=== PATIENT | female | born 1985 | race Two or more races ===

== ENCOUNTER 2025-05-28 17:39 | Emergency (ER) | payer BC, OTHER ==
[~2025-05-28] VITALS: Ht 165.1 cm; Wt 90.8 kg
--- NOTE | 2025-05-28 18:54 | ED.PDOC ---
GI ASSESSMENT HPI Comments 39 year old female presents to the ED with a chief complaint of abdominal pain onset today (05/28/25). Patient states she woke up this morning experiencing RLQ pain as well as dysuria, nausea, vomiting, pain has worsen throughout the day. Last bowel movement was this morning, states she feels constipated. Has experienced UTI in the past, states pain is different. Denies any PMHx as well as fever, chills, diarrhea, chest pain, shortness of breath, dizziness, hematemesis, hematuria. No other symptoms or modifying factors present at this time. Chief Complaint: Abdominal Pain Time Seen by MD: 18:40 Reviewed Notes: Medications, Allergies Allergies: Coded Allergies: NO KNOWN ALLERGIES (Unverified , 05/28/25) Home Meds Active Scripts Tamsulosin Hcl (Flomax) 0.4 Mg Cap, 1 CAP PO DAILY for 30 Days, #30 CAP Prov:VERONIKA DUMONT MD 05/28/25 Hydrocodone-Acetaminophen (Hydrocodone Bitartrate/AC 5-325 mg) 1 Tab Tab, 1 TAB PO Q6HP PRN, #30 TAB Prov:VERONIKA DUMONT MD 05/28/25 Information Source: Patient Mode of Arrival: Ambulatory Timing: Hours Duration: Since onset Prehospital treatment: None Quality: Sharp Severity: Moderate Recent: None Recent Hx of: None Pain Location: RLQ Modifying Factors: Nothing Associated sign and symptoms: Nausea, Vomiting, Constipation, Abdominal Pain Past Medical History PAST MEDICAL HISTORY: Denies Surgical History: Denies all surgeries ORE STORAGE DRIER History: No Pertinent ORE STORAGE DRIER History Family History Family History: Reviewed,noncontributory to illness, No family hx of Cancer, No family hx of DM, No family hx of Heart miroslava, No family hx of HTN, No family hx ofKidney miroslava, No family hx of Liver miroslava, No family hx of Lung miroslava, No family hx of Stroke Social History Smoker: Non-Smoker Alcohol: Denies ETOH Use Drugs: Denies Drug Use Lives In: Home Constitutional: denies: chills, diaphoresis, fatigue, fever, malaise, sweats, weakness, others EENTM: denies: blurred vision, double vision, ear bleeding, ear discharge, ear drainage, ear pain, ear ringing, eye pain, eye redness, hearing loss, mouth pain, mouth swelling, nasal discharge, nose bleeding, nose congestion, nose pain, photophobia, tearing, throat pain, throat swelling, voice changes, others Respiratory: denies: cough, hemoptysis, orthopnea, SOB at rest, shortness of breath, SOB with excertion, stridor, wheezing, others Cardiovascular: denies: chest pain, dizzy spells, diaphoresis, Dyspnea on exertion, edema, irregular heart beat, left arm pain, lightheadedness, palpitations, PND, syncope, others Gastrointestinal: reports: abdominal pain (RLQ), constipated, nausea, vomiting; denies: abdomen distended, blood streaked bowels, diarrhea, dysphagia, difficulty swallowing, hematemesis, melena, poor appetite, poor fluid intake, rectal bleeding, rectal pain, others Genitourinary: reports: dysuria; denies: abnormal vagina bleeding, burning, dyspareunia, flank pain, frequency, hematuria, incontinence, pain, , vagina discharge, urgency, others Neurological: denies: dizziness, fainting, headache, left sided numbness, left sided weakness, numbness, paresthesia, pre-existing deficit, right sided numbness, right sided weakness, seizure, speech problems, tingling, tremors, weakness, others Musculoskeletal: denies: back pain, gout, joint pain, joint swelling, muscle pain, muscle stiffness, neck pain, others Integumetry: denies: bruises, change in color, change in hair/nails, dryness, laceration, lesions, lumps, rash, wounds, others Allergic/Immunocompromised: denies: Difficulty Healing, Frequent Infections, Hives, Itching, others Hematologic/Lymphatic: denies: anemia, blood clots, easy bleeding, easy bruising, swollen glands, others Endocrine: denies: excessive hunger, excessive sweating, excessive thirst, excessive urination, flushing, intolerance to cold, intolerance to heat, unexplained weight gain, unexplained weight loss, others Psychiatric: denies: anxiety, bipolar disorder, depression, hopeless, panic disorder, schizophrenia, sleepless, suicidal, others All Other Systems: Reviewed and Negative Physical Exam General Appearance: No Apparent Distress, Normal HEENT: Normal ENT Inspection, Pharynx Normal, TMs Normal Neck: Full Range of Motion, Non-Tender, Normal, Normal Inspection Respiratory: Chest Non-Tender, Lungs Clear, No Accessory Muscle Use, No Respiratory Distress, Normal Breath Sounds Cardiovascular: No Edema, No JVD, No Murmur, No Gallop, Normal Peripheral Pulses, Regular Rate/Rhythm Breast Exam: Deferred Gastrointestinal: No Organomegaly, Non Tender, No Pulsatile Mass, Normal Bowel Sounds, Soft Genitalia: Deferred Pelvic: Deferred Rectal: Deferred Extremities: No calf tenderness, Normal capillary refill, Normal inspection, Normal range of motion, Non-tender, No pedal edema Musculoskeletal : Apperance: Normal Neurologic: Alert, mor[employer] II-XII nml as Tested, No Motor Deficits, Normal Affect, Normal Mood, No Sensory Deficits Cerebellar Function: Normal Reflexes: Normal Skin: Dry, Normal Color, Warm Lymphatic: No Adenopathy Was a procedure done? Was a procedure done?: No GI differential Dx Differential Diagnosis: Appendicitis, Bowel Obstruction, Diverticular disease, Ectopic , Gastritis/PUD, Gastroenteritis, UTI, Kidney Stone, Other X-Ray, Labs, Meds, VS Vital Signs Date Time Temp Pulse Resp B/P (MAP) Pulse Ox O2 Delivery O2 Flow Rate FiO2 05/28/25 23:04 98.3 80 16 126/75 (92) 99 98.3 05/28/25 23:04 80 16 99 Room Air 05/28/25 17:41 98.8 86 15 152/79 10 98.8 Lab Test 05/28/25 18:09 05/28/25 18:07 Range/Units White Blood Count 11.6 H 4.4-10.8 10^3/uL Red Blood Count 4.52 4.0-5.20 10^6/uL Hemoglobin 10.9 L 12.2-16.2 g/dL Hematocrit 32.9 L 36.0-46.0 % Mean Corpuscular Volume 72.8 L 80.0-100.0 fL Mean Corpuscular Hemoglobin 24.2 L 28.0-32.0 pg Mean Corpuscular Hemoglobin Concent 33.3 32.0-36.0 g/dL Red Cell Distribution Width 15.2 H 11.8-14.3 % Platelet Count 414 140-450 10^3/uL Mean Platelet Volume 7.5 6.9-10.8 fL Neutrophils (%) (Auto) 83.8 H 37.0-80.0 % Lymphocytes (%) (Auto) 10.9 10.0-50.0 % Monocytes (%) (Auto) 4.7 0.0-12.0 % Eosinophils (%) (Auto) 0.2 0.0-7.0 % Basophils (%) (Auto) 0.4 0.0-2.0 % Neutrophils # (Auto) 9.7 H 1.6-8.6 10 ^3/uL Lymphocytes # (Auto) 1.3 0.4-5.4 10 ^3/uL Monocytes # (Auto) 0.5 0-1.3 10 ^3/uL Eosinophils # (Auto) 0 0-0.8 10 ^3/uL Basophils # (Auto) 0.1 0-0.2 10 ^3/uL Nucleated Red Blood Cells 0.1 % Sodium Level 141 136-145 mmol/L Potassium Level 4.2 3.5-5.1 mmol/L Chloride Level 106 98-107 mmol/L Carbon Dioxide Level 26 20-31 mmol/L Anion Gap 9 5-15 Blood Urea Nitrogen 10 9-23 mg/dL Creatinine 1.11 H 0.550-1.02 mg/dL Glomerular Filtration Rate Calc 65 >90 mL/min BUN/Creatinine Ratio 9.0 L 10.0-20.0 Serum Glucose 107 H 74-106 mg/dL Calcium Level 9.5 8.7-10.4 mg/dL Total Bilirubin 0.5 0.2-1.0 mg/dL Aspartate Amino Transferase (AST) 16 13-40 U/L Alanine Aminotransferase (ALT) 12 7-40 U/L Alkaline Phosphatase 63 46-116 U/L Total Protein 7.2 5.7-8.2 g/dL Albumin 4.9 H 3.2-4.8 g/dL Lipase 32 12-53 U/L Urine Color Yellow Yellow Urine Clarity Turbid H Clear Urine pH 6.0 5.0-9.0 Urine Specific [place] 1.035 1.001-1.035 Urine Protein Trace H Negative Urine Ketones 2+ H Negative Urine Blood 3+ H Negative /uL Urine Nitrite Negative Negative Urine Bilirubin Negative Negative Urine Urobilinogen Normal Negative mg/dL Urine Leukocyte Esterase Negative Negative /uL Urine RBC 690 0 - 4 /hpf Urine Microscopic WBC 2 0-5 /HPF Urine Squamous Epithelial Cells Few <5 /hpf Urine Bacteria None seen None Seen /hpf Urine Mucus Few None Seen Urine Yeast (Budding) Occasional None Seen /hpf Urine Glucose Normal Normal mg/dL Current Medications Medications (Trade) Dose Ordered Sig/Nathan Route Start Time Stop Time Status Last Admin Ondansetron HCl (Zofran Po) 8 mg ONCE ONCE PO 05/28/25 19:00 05/28/25 19:01 DC 05/28/25 19:00 Ketorolac Tromethamine (Toradol Injection) 30 mg ONCE ONCE IV 05/28/25 19:00 05/28/25 19:01 DC 05/28/25 21:04 Acetaminophen/ Hydrocodone Bitart ([place] 10/325MG Tab) 1 tab ONCE ONCE PO 05/28/25 19:00 05/28/25 19:01 DC 05/28/25 19:00 Tamsulosin HCl (Flomax) 0.4 mg ONCE ONCE PO 05/28/25 20:15 05/28/25 20:16 DC 05/28/25 20:15 [place] [id number] Ph: [phone] DIAGNOSTIC IMAGING Diagnostic Imaging Report : [id number] Signed PATIENT: ORLY WRAY ACCT: [id number] UNIT: [id number] : 1985 LOC: ER ROOM / BED: / AGE / SEX: 39 / F ADM STATUS: REG ER SERVICE 46 ORDERING PHYSICIAN: VERONIKA DUMONT MD PROCEDURE(s): ABPL - CT AB PEL WO CON-NO ORAL OR IV REASON: right flank pain ORDER NUMBER(s): [id number], ACCESSION NUMBER(s): [id number] COMPUTERIZED TOMOGRAPHY ABDOMEN AND PELVIS WITHOUT CONTRAST REASON FOR EXAM: right flank pain COMPARISON: None TECHNIQUE: Spiral scans were acquired from the diaphragm to the symphysis pubis without intravenous contrast administration. 2-D coronal and sagittal reformatted images were provided. Radiation optimization: All CT scans at this facility use at least one of these dose optimization techniques: Automated exposure control mA and/or kV adjustment per patient size (includes targeted exams where dose is matched to clinical indication) or iterative reconstruction. RADIATION DOSE: CTDI: 22 mGy DLP: 1172 mGy-cm FINDINGS: The visualized lung bases are clear. There is no pleural effusion. There is no pericardial effusion. The spleen is not enlarged. The liver is within normal limits for size and contour. Evaluation of the abdominal organs is suboptimal in the absence of intravenous contrast. There is no calcified gallstone. Unenhanced appearance of the pancreas is unremarkable. The adrenal glands are normal. There is a 2 mm nonobstructive calculus at the interpolar region of the left kidney. There is a 3 mm calculus in the distal right ureter at the ureterovesical junction causing moderate right hydroureteronephrosis. The urinary bladder is decompressed. The uterus and ovaries are within normal limits. There is trace free fluid in the dependent pelvis, likely physiologic. There is no significant colonic stool burden. The appendix is normal. There is no distention of the small bowel. There is no pathologic lymphadenopathy by size criteria. There is no abdominal aortic aneurysm. No acute osseous abnormality is identified. IMPRESSION: There is a 3 mm calculus in the distal right ureter at the ureterovesical junction causing moderate right hydroureteronephrosis. There is a nonobstructive 2 mm calculus in the left kidney. There is no left hydronephrosis. Normal appendix ATED BY: SONG IRVIN MD DICTATED DATE/TIME: 05/28/251955 SIGNED BY: SONG IRVIN MD SIGNED DATE/TIME: 05/28/251955 CC: Time of 1ST Reevaluation: 19:10 Reevaluation 1ST: Unchanged Patient Education/Counseling: Diagnosis, Treatment Family Education/Counseling: No Family Present SEPSIS Sepsis Screen Date sepsis recognized/suspect: May 28, 2025 Time Sepsis recognized/suspect: 1744 Recent Procedure: No On Antibiotic Therapy: No Respiratory Rate >20: No Heart Rate >90: No Temp<36 C (96.8 F) or >38.3 C: No SBP <90 or MAP <65 mmHG: No New Acute Mental Status Change: No Is the patient on CPAP, BIPAP,: No Physician Orders Ct Ab Pel Wo Con-No Oral Or Iv (05/28/25 18:47) Vital Signs Date Time Temp Pulse Resp B/P (MAP) Pulse Ox O2 Delivery O2 Flow Rate FiO2 05/28/25 23:04 98.3 80 16 126/75 (92) 99 98.3 05/28/25 23:04 80 16 99 Room Air 05/28/25 17:41 98.8 86 15 152/79 10 98.8 Laboratory Tests Test 05/28/25 18:09 White Blood Count 11.6 10^3/uL (4.4-10.8) H Medications Medications Dose Ordered Sig/Nathan Route Start Time Stop Time Status Last Admin Dose Admin Acetaminophen/ Hydrocodone Bitart 1 tab ONCE ONCE PO 05/28/25 19:00 05/28/25 19:01 DC 05/28/25 19:00 Ketorolac Tromethamine 30 mg ONCE ONCE IV 05/28/25 19:00 05/28/25 19:01 DC 05/28/25 21:04 Ondansetron HCl 8 mg ONCE ONCE PO 05/28/25 19:00 05/28/25 19:01 DC 05/28/25 19:00 Tamsulosin HCl 0.4 mg ONCE ONCE PO 05/28/25 20:15 05/28/25 20:16 DC 05/28/25 20:15 Departure 1 Departure Time of Disposition: 21:00 Impression: Primary Impression: Ureteral calculus, right Additional Impression: Ureteral colic Disposition: HOME / SELF CARE / HOMELESS Condition: Stable e-Prescriptions Tamsulosin Hcl (Flomax) 0.4 Mg Cap 1 CAP PO DAILY for 30 Days, #30 CAP Prov: VERONIKA DUMONT MD 05/28/25 Hydrocodone-Acetaminophen (Hydrocodone Bitartrate/AC 5-325 mg) 1 Tab Tab 1 TAB PO Q6HP PRN, #30 TAB Prov: VERONIKA DUMONT MD 05/28/25 Discharged With: Self Critical Care Note Critical Care Time?: No Stability Stability form required: No I personally scribed for VERONIKA DUMONT MD ([email or web address]) on 05/28/25 at 18:54. Electronically submitted by Theodora Hubbard ([email or web address]). I personally scribed for VERONIKA DUMONT MD ([email or web address]) on 05/28/25 at 19:10. Electronically submitted by Theodora Hubbard ([email or web address]). I personally scribed for VERONIKA DUMONT MD ([email or web address]) on 05/28/25 at 20:21. Electronically submitted by Theodora Hubbard ([email or web address]). VERONIKA DUMONT MD May 28, 2025 18:54
[2025-05-28] MEDS: HYDROcodone-ACET 10/325MG TAB PO ONE (19:00)
[2025-05-28] MEDS: ONDANSETRON ODT 4 MG TAB PO ONE (19:00)
[2025-05-28 19:08] LABS: Urine Budding Yeast OCCASIONAL /hpf (None Seen); Urine Protein, UAD TRACE (Negative)
[2025-05-28 19:14] LABS: Hematocrit 32.9 % (36.0-46.0); Hemoglobin 10.9 g/dL (12.2-16.2); Mean Corpuscular Hemoglobin 24.2 pg (28.0-32.0); Mean Corpuscular Volume 72.8 fL (80.0-100.0); Nucleated Red Blood Cells % 0.1 %
[2025-05-28 19:28] LABS: Alanine Aminotransferase 12 U/L (7-40); Alkaline Phosphatase 63 U/L (46-116); Anion Gap 9 (5-15); BUN/Creatinine Ratio 9.0 (10.0-20.0); Bilirubin, Total 0.5 mg/dL (0.2-1.0); Blood Urea Nitrogen 10 mg/dL (9-23); Calcium 9.5 mg/dL (8.7-10.4); Carbon Dioxide 26 mmol/L (20-31); Chloride 106 mmol/L (98-107); Lipase 32 U/L (12-53); Potassium 4.2 mmol/L (3.5-5.1); Sodium 141 mmol/L (136-145); Total Protein 7.2 g/dL (5.7-8.2)
[2025-05-28 19:30] LABS: Albumin 4.9 g/dL (3.2-4.8); Glucose 107 mg/dL (74-106)
--- NOTE | 2025-05-28 19:58 | DVH ---
COMPUTERIZED TOMOGRAPHY ABDOMEN AND PELVIS WITHOUT CONTRAST REASON FOR EXAM: right flank pain COMPARISON: None TECHNIQUE: Spiral scans were acquired from the diaphragm to the symphysis pubis without intravenous c ontrast administration. 2-D coronal and sagittal reformatted images were provided. Radiation optimiza tion: All CT scans at this facility use at least one of these dose optimization techniques: Automated exposure control mA and/or kV adjustment per patient size (includes targeted exams where dose is mat ched to clinical indication) or iterative reconstruction. RADIATION DOSE: CTDI: 22 mGy DLP: 1172 mGy-cm FINDINGS: The visualized lung bases are clear. There is no pleural effusion. There is no pericardial effusion. The spleen is not enlarged. The liver is within normal limits for size and contour. Evaluation of the abdominal organs is suboptimal in the absence of intravenous contrast. There is no calcified gallsto ne. Unenhanced appearance of the pancreas is unremarkable. The adrenal glands are normal. There is a 2 mm nonobstructive calculus at the interpolar region of the left kidney. There is a 3 mm calculus in the distal right ureter at the ureterovesical junction causing moderate right hydroureteronephrosis. The urinary bladder is decompressed. The uterus and ovaries are within normal limits. There is trace free fluid in the dependent pelvis, likely physiologic. There is no significant colonic stool burden . The appendix is normal. There is no distention of the small bowel. There is no pathologic lymphaden opathy by size criteria. There is no abdominal aortic aneurysm. No acute osseous abnormality is ident ified. IMPRESSION: There is a 3 mm calculus in the distal right ureter at the ureterovesical junction causing moderate r ight hydroureteronephrosis. There is a nonobstructive 2 mm calculus in the left kidney. There is no left hydronephrosis. Normal appendix
[2025-05-28] MEDS ORDERED: TAMS-35 PO (20:11)
[2025-05-28] MEDS ORDERED: HYDR-4902 PO (20:11)
[2025-05-28] MEDS: TAMSULOSIN HYDROCHLORIDE 0.4 MG CAP PO ONE (20:15)
[2025-05-28] MEDS: KETOROLAC TROMETH 30 MG/ML 1ML VIAL IV ONE (21:04)
[2025-05-28 23:04] VITALS: BP 126/75; PULSE 80; RESP 16; TEMP 98.3; O2SAT 99
== END 2025-05-28 23:07 | disposition home or self-care (01) ==
LOC: ER 17:39
DX: N13.2 Hydronephrosis with renal and ureteral calculous obstruction (principal); Z87.440 Personal history of urinary (tract) infections
CPT/HCPCS: 36415; 74176; 80053; 81001; 83690; 85025; 96374; 99285; J1885; Q0162